=== PATIENT | male | born 1980 | race African-American/Black ===

== ENCOUNTER 2016-06-28 18:38 | Emergency (ER) | payer SELFPAY ==
[2016-06-28 21:28] LABS: BILIRUBIN NEGATIVE (NEGATIVE); BLOOD TRACE-INTACT Ery/uL (NEGATIVE); CLARITY CLEAR (CLEAR); COLOR YELLOW (YELLOW); GLUCOSE (U) NORMAL (NORMAL); KETONE (U) NEGATIVE (NEGATIVE); LEUKOCYTES 1+ Leu/uL (NEGATIVE); NITRITE NEGATIVE (NEGATIVE); PROTEIN TRACE (LOW) mg/dL (NEGATIVE); SPECIFIC GRAVITY >=1.030 (1.001-1.030)
[2016-06-28 21:33] LABS: BACTERIA 1+; URINARY WBC TNTC
== END 2016-06-28 21:42 | disposition home or self-care (01) ==
LOC: FER 18:38
PROVIDERS: Emergency Medicine Emergency Medical Services
DX: R36.9 Urethral discharge, unspecified (principal); R30.0 Dysuria; R82.90 Unspecified abnormal findings in urine; F17.200 Nicotine dependence, unspecified, uncomplicated
CPT/HCPCS: 81001; 87088; J1100; J1885

== ENCOUNTER 2020-03-19 10:48 | Inpatient (IN) | payer OTHER ==
[~2020-03-19 10:48] MED LIST: NAPROXEN500 MG PO; PROTONIX 40MG T40 MG PO
[2020-03-19 12:08] LABS: CORONAVIRUS 2019 SARS-COV-2 NEGATIVE (NEGATIVE); INFLUENZA A NAA NEGATIVE (NEGATIVE)
[2020-03-19 12:12] LABS: BASOPHIL 0.6 % (0-2); EOSINOPHIL 0.8 % (0-5); HCT 39.2 % (42.0-52.0); HGB 12.6 g/dl (13.2-18.0); LYMPHOCYTE 22.2 % (15-48); MCH 30.7 pg (25.0-31.0); MCHC 32.1 g/dL (32.0-36.0); MCV 95.6 fL (78.0-100.0); MPV 10.2 fL (6.0-9.5); NRBC 0; PLT 211 K/uL (150-400); RDW 13.5 % (11.5-14.0); WBC 4.8 K/uL (4.0-10.5)
[2020-03-19 12:16] LABS: INR 1.28 (0.9-1.2); PROTHROMBIN TIME 15.2 SECONDS (11.4-13.6)
[2020-03-19 12:18] LABS: D-DIMER 2.29 ug/mLFEU (0.00-0.41)
[2020-03-19 12:24] LABS: ALBUMIN 3.1 g/dL (3.4-5.0); BILIRUBIN - TOTAL 0.5 mg/dL (0.2-1.0); BUN/CREAT RATIO (CALC) 12.2 RATIO; CREATININE 0.98 mg/dL (0.67-1.17); GLOBULIN (CALCULATION) 3.4 g/dL; TOTAL PROTEIN 6.5 g/dL (6.4-8.2)
[2020-03-19 16:02] LABS: BILIRUBIN NEGATIVE (NEGATIVE); BLOOD NEGATIVE Ery/uL (NEGATIVE); CLARITY CLEAR (CLEAR); COLOR YELLOW (YELLOW); GLUCOSE (U) NORMAL (NORMAL); LEUKOCYTES NEGATIVE Leu/uL (NEGATIVE); NITRITE NEGATIVE (NEGATIVE); PROTEIN NEGATIVE (NEGATIVE); SPECIFIC GRAVITY 1.015 (1.001-1.030); UROBILINOGEN 0.2 mg/dL (0.2-1.0)
[2020-03-19] MEDS ORDERED: PROAIR DIGIHAL90 MCG INH (18:04)
[2020-03-20 06:12] LABS: BASOPHIL 0.5 % (0-2); EOSINOPHIL 2.3 % (0-5); HCT 36.3 % (42.0-52.0); HGB 11.6 g/dl (13.2-18.0); MCH 30.1 pg (25.0-31.0); MONOCYTE 10.3 % (0-12); MPV 10.3 fL (6.0-9.5); NEUTROPHIL 50.4 % (41-80); NRBC 0; PLT 200 K/uL (150-400); RBC 3.86 M/uL (4.70-6.00); RDW 13.4 % (11.5-14.0); WBC 5.8 K/uL (4.0-10.5)
[2020-03-20 06:32] LABS: ALBUMIN 2.9 g/dL (3.4-5.0); BILIRUBIN - TOTAL 0.4 mg/dL (0.2-1.0); CREATININE 1.07 mg/dL (0.67-1.17); GLOBULIN (CALCULATION) 3.1 g/dL; POTASSIUM 3.4 mmol/L (3.5-5.1)
--- NOTE | 2020-03-20 10:48 | NUR ---
RN EDUCATED VISITOR THAT PATIENT IS ALLOWED TO WALK WITH A MASK ON THE FLOOR BUT WAS NOT ALLOWED TO LEAVE THE FLOOR RN NOTIFIED BY WEIGHT INSPECTOR THAT PT HAD AMBULATED OFF FLOOR AND WAS SEEN GETTING INTO A CAR. SECURITY WAS NOTIFIED AT 1030 PT AMBULATED BACK TO FLOOR AND RETURNED TO ROOM AT 1040
--- NOTE | 2020-03-20 15:30 | NUR ---
1530: PATIENT CAME TO DESK AND REQUESTED TO "GO SMOKE", THIS NURSE INFORMED HIM THAT HE COULD NOT GO OFF THE FLOOR AND THE FACILITY IS A NO SMOKING FACILITY. OFFERED NICOTINE PATCH AND HE REFUSED AND SAID HE WANTED TO SIGN HIMSELF OUT. I EXPLAINED THAT INSURANCE MAY NOT PAY AND THAT HE STILL NEEDED AN ECHOCARDOGRAM AND HE SAID HE WOULD TAKE CARE OF IT HIMSELF. AMA PAPER SIGNED AND IV D/C'D.
[2020-03-21 08:09] LABS: HBSAG SCREEN Negative (Negative); HEP B CORE AB, TOT Negative (Negative); HEP C VIRUS AB <0.1 (0.0-0.9)
== END 2020-03-20 15:30 | disposition left against medical advice (07) | DRG 292 ==
LOC: FER 10:48 → FMS 15:50
PROVIDERS: Emergency Medicine; ADMIT Internal Medicine
DX: I50.810 Right heart failure, unspecified (principal); R18.8 Other ascites; J45.909 Unspecified asthma, uncomplicated; K21.9 Gastro-esophageal reflux disease without esophagitis; F17.290 Nicotine dependence, other tobacco product, uncomplicated; Z90.49 Acquired absence of other specified parts of digestive tract
CPT/HCPCS: 36415; 36600; 71275; 76705; 80053; 81003; 82803; 83690; 83735; 83880; 84145; 84484; 85025; 85379; 85610; 86704; 86706; 86708; 86803; 87340; 93005; 94640; G0480; J1170; J1885; J1940; J2405; Q9967; U0002

== ENCOUNTER 2020-05-05 22:03 | Emergency (ER) | payer OTHER ==
[~2020-05-05 22:03] MED LIST changes: +PROAIR DIGIHAL90 MCG INH
[2020-05-05 22:38] LABS: BASOPHIL 0.5 % (0-2); EOSINOPHIL 0.5 % (0-5); HCT 42.6 % (42.0-52.0); LYMPHOCYTE 30.5 % (15-48); MCH 30.2 pg (25.0-31.0); MCHC 32.9 g/dL (32.0-36.0); MCV 91.8 fL (78.0-100.0); MONOCYTE 7.3 % (0-12); NEUTROPHIL 60.7 % (41-80); NRBC 0; PLT 232 K/uL (150-400); RBC 4.64 M/uL (4.70-6.00); RDW 14.5 % (11.5-14.0); WBC 6.5 K/uL (4.0-10.5)
[2020-05-05 22:48] LABS: INR 1.27 (0.9-1.2); PROTHROMBIN TIME 15.1 SECONDS (11.4-13.6)
[2020-05-05 22:49] LABS: PTT 31.9 SECONDS (22.2-34.7)
[2020-05-05 22:56] LABS: ALBUMIN 3.1 g/dL (3.4-5.0); BILIRUBIN - TOTAL 0.9 mg/dL (0.2-1.0); BUN/CREAT RATIO (CALC) 16.9 RATIO; CREATININE 1.3 mg/dL (0.67-1.17); GLOBULIN (CALCULATION) 3.7 g/dL; POTASSIUM 3.4 mmol/L (3.5-5.1); TOTAL PROTEIN 6.8 g/dL (6.4-8.2)
== END 2020-05-06 02:30 | disposition other institution (70) ==
LOC: FER 22:03
PROVIDERS: Student in an Organized Health Care Education/Training Program
DX: I21.4 Non-ST elevation (NSTEMI) myocardial infarction (principal); I50.1 Left ventricular failure, unspecified; N17.9 Acute kidney failure, unspecified; R00.0 Tachycardia, unspecified; I51.7 Cardiomegaly; J45.909 Unspecified asthma, uncomplicated; F17.290 Nicotine dependence, other tobacco product, uncomplicated; Z79.899 Other long term (current) drug therapy
CPT/HCPCS: 36415; 71045; 80053; 83880; 84484; 85025; 85610; 85730; 93005; 94640; 94664; J1644; J7030

== ENCOUNTER 2021-06-09 16:41 | Emergency (ER) | payer OTHER ==
[2021-06-09 20:23] LABS: BASOPHIL 0.3 % (0-2); HCT 41.1 % (42.0-52.0); HGB 13.4 g/dl (13.2-18.0); LYMPHOCYTE 16.3 % (15-48); MCH 29.3 pg (25.0-31.0); MCHC 32.6 g/dL (32.0-36.0); MCV 89.9 fL (78.0-100.0); MONOCYTE 9.9 % (0-12); MPV 9.6 fL (6.0-9.5); NEUTROPHIL 70.9 % (41-80); NRBC 0; PLT 268 K/uL (150-400); RBC 4.57 M/uL (4.70-6.00); RDW 11.9 % (11.5-14.0); WBC 12.4 K/uL (4.0-10.5)
[2021-06-09 20:43] LABS: BUN/CREAT RATIO (CALC) 5.6 RATIO; CREATININE 1.07 mg/dL (0.67-1.17)
[2021-06-09] MEDS ORDERED: AMOX TR-K CLV1 EAC4 PO (20:51)
[2021-06-09] MEDS ORDERED: VIBRAMYCIN100 MG PO (20:51)
[2021-06-09] MEDS ORDERED: NORCO 5-325 TA1 EACH PO (20:53)
[2021-06-09] MEDS ORDERED: NORVASC5 MG PO (20:56)
[2021-06-09] MEDS ORDERED: NAPROXEN500 MG PO (20:56)
== END 2021-06-09 21:06 | disposition home or self-care (01) ==
LOC: FER 16:41
PROVIDERS: Internal Medicine
DX: L02.01 Cutaneous abscess of face (principal); I10 Essential (primary) hypertension; F17.210 Nicotine dependence, cigarettes, uncomplicated
CPT/HCPCS: 36415; 70486; 80048; 85025; J1100; J2001